=== PATIENT | female | born 1970 | race Caucasian/White ===

== ENCOUNTER → 2020-03-02 | Outpatient (CLI) | payer OTHER ==
[~2020-03-02] MED LIST: CETI10TA24 PO; PANT40TA3 PO; SERT100T PO
== END | disposition home or self-care (01) ==
LOC: LAB 14:15
PROVIDERS: ATTEND Registered Nurse
DX: Z11.59 Encounter for screening for other viral diseases (principal)
CPT/HCPCS: C9803; U0003

== ENCOUNTER → 2020-03-05 | Day surgery (SDC) | payer OTHER ==
[~2020-03-05] MED LIST changes: -CETI10TA24 PO; +CETI10TA74 PO; +IPRATRPIUM/ALBUTEROL 0.5/2.5MG 3 ML NEBU. NEB PRN; +IV RINGERS SOLUTION,LACTATED 1,000 ML IV SCH; +ONDANSETRON PF 4 MG/2 ML VIAL. IV PRN; +PROPOFOL 10,000 MCG/ML (20ML) VIAL IV ONE
[2020-03-05 09:06] VITALS: BP 111/46
--- NOTE | 2020-03-06 17:06 | PATHOLOGY ---
[facility] Accession Number: [id number] . 01 Material submitted: . PART A: duodenum - DUODENAL BIOPSY PART B: stomach - ANTRUM BIOPSY PART C: esophagus - GE JUNCTION AT 38CM . 01 Clinical history: . None provided. . 02 Diagnosis: A. Duodenal biopsies: - No significant pathologic abnormalities. . B. Gastric biopsies, antrum: - Active chronic gastritis, moderate to marked, with rare Helicobacter organisms identified. . C. Gastroesophageal junction, biopsy at 38 cm: - Reflux esophagitis with moderate active chronic inflammation. [facility] 03/06/2020 1033 Local . 02 Comment: Sections of the duodenal biopsy reveal segments of duodenal and small intestine mucosa. There are focally prominent Norberto's glands. Where best oriented, the mucosal villi show no sprue-like changes or significant inflammatory changes. . Sections of the gastric antral biopsy show moderate active chronic inflammation. A properly controlled immunoperoxidase stain for Helicobacter reveals rare Helicobacter organisms. . Sections of the gastroesophageal junction biopsy at 38 cm reveal segments of hyperplastic squamous esophageal mucosa, esophagogastric mucosa, and gastric mucosa showing moderate active chronic inflammation. The findings are consistent with reflux esophagitis. There is no evidence of Richardson's change, dysplasia, or malignancy. (JPM/db; 03/06/2020) . Special stain performed: Immunoperoxidase for Helicobacter on B1 . 02 Electronically signed: . Jone Robbins MD, Pathologist NPI- [id number] . 01 Gross description: . A. Received in formalin labeled "Walder, Yvette, duodenum rule out celiac" is a 1.5 x 0.5 x 0.1 cm aggregate of smith-brown soft tissue fragments. The specimen is submitted entirely in A1. . B. Received in formalin labeled "Walder, Yvette, antrum rule out H. pylori" is a 0.5 x 0.3 x 0.1 cm fragment of smith-brown soft tissue. The specimen is submitted entirely in B1. . C. Received in formalin labeled "Walder, Yvette, GE junction 38 cm" is a 1.0 x 0.5 x 0.1 cm aggregate of smith-brown soft tissue fragments. The specimen is submitted entirely in C1. ([facility] [place]; 03/05/2020) [facility] 03/05/2020 1942 Local . 02 Pathologist provided ICD-10: K29.50, K21.0, B96.81 . 02 CPT . 219158, 954193, [id number], [id number] Specimen Comment: A courtesy copy of this report has been sent to [phone] Specimen Comment: [id number] Specimen Comment: Report sent to / DR BILLINGS Performed at: 01 [facility] [place] [address], [place], [place] [id number] MD Perez Luis MD Phone: [phone] Performed at: 02 [facility] [place] [address] [place], [place] [id number] MD Jone Robbins MD Phone: [phone]
== END | disposition home or self-care (01) ==
LOC: SURG 07:22
PROVIDERS: ATTEND Internal Medicine Gastroenterology
DX: R10.13 Epigastric pain (principal); K29.50 Unspecified chronic gastritis without bleeding; K21.0 Gastro-esophageal reflux disease with esophagitis; B96.81 Helicobacter pylori [H. pylori] as the cause of diseases classified elsewhere; K31.89 Other diseases of stomach and duodenum; E66.9 Obesity, unspecified; F41.9 Anxiety disorder, unspecified; J30.2 Other seasonal allergic rhinitis; F32.9 Major depressive disorder, single episode, unspecified; Z79.899 Other long term (current) drug therapy; Z68.25 Body mass index [BMI] 25.0-25.9, adult; Z88.0 Allergy status to penicillin; Z98.890 Other specified postprocedural states
CPT/HCPCS: 43239; 88305; 88342; J2704; J7120